=== PATIENT | female | born 1930 | race Native Hawaiian/Other Pacific Islander ===

== ENCOUNTER 2016-09-20 10:06 | Outpatient (CLI) | payer OTHER ==
[~2016-09-20 10:06] MED LIST: AMLO5TAB PO; BINOSTO70 MG OR; DOCU SOFT100 MG; FOSI20TA2 PO; LEVO0.0529 PO; LEVO0.0723 PO
[2016-09-20 10:25] LABS: PLATELET COUNT 148 K/uL (152-353)
[2016-09-20 10:52] LABS: POTASSIUM 3.7 mmol/L (3.6-5.2); SODIUM 137 mmol/L (136-145)
== END 2016-09-20 20:01 | disposition home or self-care (01) ==
LOC: LABW 10:06
PROVIDERS: Internal Medicine
DX: I10 Essential (primary) hypertension (principal)
CPT/HCPCS: 36415; 80053; 80061; 81000; 84439; 84443; 85027

== ENCOUNTER 2016-12-17 10:23 | Outpatient (CLI) | payer OTHER | END 2016-12-17 11:30 | disposition home or self-care (01) | LOC: LABW 10:23 | DX: E03.8 Other specified hypothyroidism (principal) | CPT/HCPCS: 36415; 84439; 84443 ==

== ENCOUNTER 2017-01-31 09:59 | Outpatient (CLI) | payer OTHER ==
[~2017-01-31] VITALS: Ht 152.4 cm; Wt 1.8 kg
== END 2017-01-31 12:00 | disposition home or self-care (01) ==
LOC: INF 09:59
DX: M81.0 Age-related osteoporosis without current pathological fracture (principal)
CPT/HCPCS: 36415; 82310; 96372; J0897

== ENCOUNTER 2017-05-22 09:20 | Outpatient (CLI) | payer OTHER ==
[2017-05-22 09:46] LABS: PLATELET COUNT 149 K/uL (152-353)
[2017-05-22 09:56] LABS: POTASSIUM 3.8 mmol/L (3.6-5.2); SODIUM 137 mmol/L (136-145)
== END 2017-05-22 10:20 | disposition home or self-care (01) ==
LOC: LABW 09:20
PROVIDERS: Plastic Surgery Plastic Surgery Within the Head and Neck
DX: Z01.812 Encounter for preprocedural laboratory examination (principal); Z01.811 Encounter for preprocedural respiratory examination; Z01.810 Encounter for preprocedural cardiovascular examination
CPT/HCPCS: 36415; 80048; 85027; 93005

== ENCOUNTER 2017-05-26 13:03 | Outpatient (CLI) | payer OTHER ==
[2017-05-26 13:25] LABS: PLATELET COUNT 171 K/uL (152-353)
[2017-05-26 17:00] LABS: POTASSIUM 3.9 mmol/L (3.6-5.2); SODIUM 136 mmol/L (136-145)
== END 2017-05-26 14:05 | disposition home or self-care (01) ==
LOC: LAB 13:03
PROVIDERS: Physician Assistant
DX: E03.8 Other specified hypothyroidism (principal); I10 Essential (primary) hypertension; M81.0 Age-related osteoporosis without current pathological fracture
CPT/HCPCS: 80053; 80061; 82607; 83735; 84439; 84443; 85027

== ENCOUNTER 2017-08-08 08:47 | Outpatient (CLI) | payer OTHER ==
[~2017-08-08] VITALS: Ht 152.4 cm; Wt 50.8 kg
[2017-08-08 09:12] VITALS: BP 132/70; TEMP 98.1
== END 2017-08-08 09:55 | disposition home or self-care (01) ==
LOC: INF 08:47
DX: M81.0 Age-related osteoporosis without current pathological fracture (principal)
CPT/HCPCS: 36415; 82310; 96372; J0897

== ENCOUNTER 2017-11-26 09:41 | Outpatient (CLI) | payer OTHER ==
[2017-11-26 09:57] LABS: PLATELET COUNT 162 K/uL (152-353)
== END 2017-11-26 20:53 | disposition home or self-care (01) ==
LOC: LABW 09:41
PROVIDERS: Internal Medicine
DX: I10 Essential (primary) hypertension (principal); E55.9 Vitamin D deficiency, unspecified
CPT/HCPCS: 36415; 80053; 80061; 81000; 82306; 84439; 84443; 85027

== ENCOUNTER 2018-02-19 09:07 | Outpatient (CLI) | payer OTHER ==
[~2018-02-19] VITALS: Ht 152.4 cm; Wt 47.6 kg
[2018-02-19 09:16] VITALS: BP 106/70; TEMP 97.6
== END 2018-02-19 10:00 | disposition home or self-care (01) ==
LOC: INF 09:07
DX: M81.0 Age-related osteoporosis without current pathological fracture (principal)
CPT/HCPCS: 36415; 82310; 96372; J0897

== ENCOUNTER 2018-09-08 08:59 | Outpatient (CLI) | payer OTHER ==
[~2018-09-08] VITALS: Ht 160 cm; Wt 47.6 kg
[2018-09-08 10:10] VITALS: BP 125/62; TEMP 97.8
== END 2018-09-08 11:03 | disposition home or self-care (01) ==
LOC: INF 08:59
DX: M81.0 Age-related osteoporosis without current pathological fracture (principal)
CPT/HCPCS: 36415; 82310; 96372; J0897

== ENCOUNTER 2018-09-21 08:33 | Outpatient (CLI) | payer OTHER ==
[2018-09-21 09:01] LABS: PLATELET COUNT 178 K/uL (152-353)
[2018-09-21 09:24] LABS: POTASSIUM 4.3 mmol/L (3.6-5.2)
== END 2018-09-21 19:39 | disposition home or self-care (01) ==
LOC: LABW 08:33
PROVIDERS: Internal Medicine
DX: I10 Essential (primary) hypertension (principal)
CPT/HCPCS: 36415; 80053; 80061; 81000; 84439; 84443; 85027